=== PATIENT | male | born 1995 | race Caucasian/White ===

== ENCOUNTER 2018-10-08 18:07 | Emergency (ER) | payer OTHER ==
[~2018-10-08] VITALS: Ht 188 cm; Wt 81.7 kg
[~2018-10-08 18:07] MED LIST: CHLO25 PO; CYCL10 PO; HYDPAM50 PO; LEVE500 PO
== END 2018-10-08 19:09 | disposition home or self-care (01) ==
LOC: ER 18:07
DX: F10.239 Alcohol dependence with withdrawal, unspecified (principal); Z76.0 Encounter for issue of repeat prescription; Z79.899 Other long term (current) drug therapy; F17.210 Nicotine dependence, cigarettes, uncomplicated
CPT/HCPCS: 99281

== ENCOUNTER 2022-10-06 20:01 | Emergency (ER) | payer OTHER ==
[~2022-10-06] VITALS: Ht 188 cm; Wt 93.0 kg
[2022-10-06 20:59] VITALS: BP 152/99
[2022-10-06] MEDS ORDERED: LEVE500 PO (21:13)
== END 2022-10-06 21:28 | disposition home or self-care (01) ==
LOC: ER 20:01
DX: R11.2 Nausea with vomiting, unspecified (principal); Z76.0 Encounter for issue of repeat prescription; Z79.899 Other long term (current) drug therapy; F17.210 Nicotine dependence, cigarettes, uncomplicated
CPT/HCPCS: A9270

== ENCOUNTER 2022-10-10 13:26 | Emergency (ER) | payer OTHER ==
[~2022-10-10] VITALS: Ht 188 cm; Wt 94.8 kg
[2022-10-10 13:35] VITALS: BP 153/100
[2022-10-10] MEDS ORDERED: NYST237S MT ×2 (14:51→16:19)
[2022-10-10] MEDS ORDERED: VALACYCLOVIR1000 MG PO (14:51)
[2022-10-10 15:36] LABS: BASOPHILS ABSOLUTE AUTO 0.02 K/mm3 (0.00-0.23); BASOPHILS PERCENT AUTO 0 % (0-2); EOSINOPHILS ABSOLUTE AUTO 0.09 K/mm3 (0.00-0.68); EOSINOPHILS PERCENT AUTO 1 % (0-6); Hematocrit 43.6 % (37.0-53.0); Hemoglobin 14.8 g/dL (13.5-17.5); IMMATURE GRAN ABSOLUTE AUTO 0.03 K/mm3 (0.00-0.10); IMMATURE GRAN PERCENT AUTO 0 % (0-1); LYMPHOCYTES PERCENT AUTO 26 % (21-46); MONOCYTES ABSOLUTE AUTO 0.62 K/mm3 (0.16-1.47); MONOCYTES PERCENT AUTO 8 % (4-13); Mean Corpuscular HGB Conc 33.9 g/dL (31.5-36.5); Mean Corpuscular Volume 88 fL (80-100); NEUTROPHILS ABSOLUTE AUTO 5.13 K/mm3 (1.96-9.15); NEUTROPHILS PERCENT AUTO 64 % (41-73); Platelet Count 203 K/mm3 (150-400); RDW Coefficient Variation 12.5 % (11.7-14.2); Red Blood Cell Count 4.93 M/mm3 (4.30-5.90); White Blood Cell Count 7.99 K/mm3 (4.00-11.30)
[2022-10-10 15:57] LABS: Albumin, Blood 3.9 g/dL (3.4-5.0); Albumin/Globulin Ratio 0.8 (0.8-1.8); Bilirubin, Total 0.6 mg/dL (0.1-1.0); Bun/Creatinine Ratio 21.2 (12.0-20.0); C-REACTIVE PROTEIN, EXT RANGE 2.41 mg/dL (0.000-0.300); Calcium, Blood 9.9 mg/dL (8.5-10.1); Creatinine, Blood 0.94 mg/dL (0.60-1.20); Globulin, Blood 4.9 g/dL (2.2-4.0); Potassium, Blood 4.7 mmol/L (3.5-5.5); Total Protein, Blood 8.8 g/dL (6.4-8.2)
[2022-10-12 12:09] LABS: HSV-1 DNA Positive (Negative); HSV-2 DNA Negative (Negative)
== END 2022-10-10 15:32 | disposition home or self-care (01) ==
LOC: ER 13:26
PROVIDERS: Physician Assistant
DX: K12.1 Other forms of stomatitis (principal); Z79.899 Other long term (current) drug therapy; F17.210 Nicotine dependence, cigarettes, uncomplicated
CPT/HCPCS: 36415; 80053; 85025; 86140; 87529